=== PATIENT | male | born 1960 | race Caucasian/White ===

== ENCOUNTER 2018-11-24 18:03 | Emergency (ER) | payer OTHER ==
[~2018-11-24] VITALS: Ht 177.8 cm; Wt 104.3 kg
[2018-11-24] MEDS ORDERED: KIDNEY MEDICATION (18:10)
[2018-11-24] MEDS ORDERED: METF500C (18:10)
== END 2018-11-24 18:17 | disposition home or self-care (01) ==
LOC: ER 18:03
DX: L03.115 Cellulitis of right lower limb (principal); L02.415 Cutaneous abscess of right lower limb; B86 Scabies; F17.210 Nicotine dependence, cigarettes, uncomplicated
CPT/HCPCS: 99283